=== PATIENT | female | born 1980 | race Caucasian/White ===

== ENCOUNTER → 2018-02-08 18:29 | Outpatient (CLI) | payer OTHER, SELFPAY ==
[2018-02-08 20:17] LABS: Chlamydia Trachomatis by PCR Negative (Negative); Neisserai gonorrhoeae by PCR Negative (Negative); Probe Check PASS; Sample Adequacy Control PASS; Specimen Processing Control PASS
[2018-02-12 11:49] LABS: HPV Reflexed? NOT INDICATED
== END ==
PROVIDERS: Referring Provider Obstetrics & Gynecology; Visit Provider Obstetrics & Gynecology
DX: Z34.81 Encounter for supervision of other normal pregnancy, first trimester (principal); Z12.4 Encounter for screening for malignant neoplasm of cervix; Z11.3 Encounter for screening for infections with a predominantly sexual mode of transmission
CPT/HCPCS: 87491; 87591; 88175; G0145

== ENCOUNTER → 2018-03-01 14:23 | Outpatient (CLI) | payer OTHER, SELFPAY ==
[2018-03-01 15:50] LABS: Absolute Lymphocyte Count 1.44 X10^3/ul (0.83-4.51); Absolute Neutrophil Count 5.8 X10^3/uL (2.0-7.7); Basophil# 0.01 X10^3/uL; Basophil% 0.1 % (0-1); Eosinophil# 0.01 X10^3/uL; Eosinophils% 0.1 % (0-5); Hematocrit 36.6 % (37-47); Hemoglobin 12.4 g/dl (12.0-15.0); Lymphocyte # 1.44 X10^3/ul (4.0); Lymphocyte % 18.8 % (19-41); Mean Corp Hgb Conc 33.9 g/gl (32-36); Mean Corpuscular Hgb 32.2 pg (27.0-32.0); Mean Corpuscular Volume 95.1 fL (81-99); Mean Platelet Vol. 10.1 fl (6.2-12.0); Monocyte# 0.38 X10^3/uL; Neutrophil # 5.82 X10^3/uL (2.7-7.7); Neutrophil % 75.9 % (47-70); Platelet Count 285 K/mm3 (150-450); RBC Distribution Width CV 11.9 % (11.6-14.6); RBC Distribution Width SD 40.9 fl (35.1-43.9); Red Blood Count 3.85 M/mm3 (4.2-5.4); White Blood Count 7.7 K/mm3 (4.4-11.0)
[2018-03-01 15:58] LABS: POSITIVE COUNT NO; POSITIVE DIFFERENTIAL NO; POSITIVE MORPHOLOGY NO
[2018-03-01 16:05] LABS: Thyroid Stim Hormone (TSH) 0.83 uIU/mL (0.358-3.74)
[2018-03-01 16:07] LABS: Color, Urine Yellow (Yellow); Glucose, Dipstick Normal (Normal); Ketone-Dipstick Negative (Negative); Leukocyte Esterase-Dipstick 500 /ul (Negative); Nitrite-Dipstick Negative (Negative); Occult Blood-Urine 10 /ul (Negative); Protein-Dipstick Negative (Negative); Specific Gravity, Urine 1.015 (1.002-1.030); Urine Bilirubin Dipstick Negative (Negative); Urine Clarity Clear (Clear); Urine Urobilinogen Normal (Normal)
[2018-03-01 16:46] LABS: HIV - WCH Non-Reactive (Nonreactive); Rubella IgG 137.1 IU/mL
[2018-03-01 17:01] LABS: Amphetamine Urine VISTA NEGATIVE (<1000 ng/mL); Barbiturate Urine VISTA NEGATIVE (< 200 ng/mL); Benzodiazepine Urine VISTA NEGATIVE (< 200 ng/mL); Cocaine Urine VISTA NEGATIVE (< 300 ng/mL); Ecstacy Urine VISTA NEGATIVE (< 500 ng/mL); Methadone Urine VISTA NEGATIVE (< 300 ng/mL); PCP Urine VISTA NEGATIVE (< 25 ng/mL); THC Urine VISTA NEGATIVE (< 50 ng/mL); Vista UDS pH Range 7
[2018-03-03 08:11] LABS: HEPATITIS B SURFACE AG Negative (Negative); Hep C Antibodies <0.1 s/co ratio (0.0-0.9)
[2018-03-04 02:33] LABS: Prenatal RPR NONREACTIVE (NONREACTIVE)
== END ==
PROVIDERS: Visit Provider Obstetrics & Gynecology
DX: Z34.81 Encounter for supervision of other normal pregnancy, first trimester (principal)
CPT/HCPCS: 36415; 80307; 81002; 84443; 85025; 86703; 86762; 86803; 87340

== ENCOUNTER → 2018-06-28 08:31 | Outpatient (CLI) | payer OTHER, SELFPAY ==
[2018-06-28 14:00] LABS: Glucose Challenge Gest 1H 50g 147 mg/dL (70-140)
[2018-06-28 14:02] LABS: Hemoglobin 10.5 g/dl (12.0-15.0); Mean Corp Hgb Conc 31.8 g/gl (32-36); Mean Corpuscular Hgb 31.4 pg (27.0-32.0); Mean Corpuscular Volume 98.8 fL (81-99); Mean Platelet Vol. 9.1 fl (6.2-12.0); Platelet Count 303 K/mm3 (150-450); RBC Distribution Width CV 13.2 % (11.6-14.6); RBC Distribution Width SD 47.9 fl (35.1-43.9); Red Blood Count 3.34 M/mm3 (4.2-5.4); White Blood Count 6.7 K/mm3 (4.4-11.0)
[2018-06-28 14:07] LABS: Scan Indicated on CBC? Y/N NO
== END ==
PROVIDERS: Visit Provider Obstetrics & Gynecology
DX: Z34.82 Encounter for supervision of other normal pregnancy, second trimester (principal)
CPT/HCPCS: 36415; 82950; 85027; 86850

== ENCOUNTER → 2018-07-01 09:43 | Outpatient (CLI) | payer OTHER, SELFPAY ==
[2018-07-01 10:41] LABS: Glucose GTT-Gestation. Fasting 78 mg/dL (<105)
[2018-07-01 12:16] LABS: Glucose GTT-Gestational 1 Hr 151 mg/dL (<190)
[2018-07-01 13:06] LABS: Glucose GTT-Gestational 2 Hr 143 mg/dL (<165)
[2018-07-01 13:39] LABS: Glucose GTT-Gestational 3 Hr 121 L (<145)
== END ==
PROVIDERS: Referring Provider Obstetrics & Gynecology; Visit Provider Obstetrics & Gynecology
DX: O24.912 Unspecified diabetes mellitus in pregnancy, second trimester (principal)
CPT/HCPCS: 36415; 82951; 82952

== ENCOUNTER → 2018-08-25 13:13 | Outpatient (CLI) | payer OTHER, SELFPAY | LOC: WOBLAB 13:14 → LABSPEC 13:14 | PROVIDERS: Visit Provider Obstetrics & Gynecology | DX: Z36.85 Encounter for antenatal screening for Streptococcus B (principal) | CPT/HCPCS: 87081 ==

== ENCOUNTER 2018-09-30 07:00 | Inpatient (IN) | payer OTHER, SELFPAY ==
[2018-09-30 07:11] VITALS: BMI 27.8
[2018-09-30] MEDS: Lactated Ringers 1,000 ML 50 ML IV ×4 (07:30→22:43)
[2018-09-30] MEDS: Oxytocin 30 units/NS 500 ml 30 UNITS/500 ML IV.SOLN IV (07:45)
[2018-09-30 08:04] LABS: Absolute Lymphocyte Count 1.39 X10^3/ul (0.83-4.51); Absolute Neutrophil Count 5.3 X10^3/uL (2.0-7.7); Basophil# 0.01 X10^3/uL; Basophil% 0.1 % (0-1); Eosinophil# 0.02 X10^3/uL; Eosinophils% 0.3 % (0-5); Hematocrit 36.4 % (37-47); Hemoglobin 12.1 g/dl (12.0-15.0); Lymphocyte # 1.39 X10^3/ul (4.0); Lymphocyte % 19.5 % (19-41); Mean Corp Hgb Conc 33.2 g/gl (32-36); Mean Corpuscular Hgb 32.4 pg (27.0-32.0); Mean Corpuscular Volume 97.6 fL (81-99); Mean Platelet Vol. 9.6 fl (6.2-12.0); Monocyte# 0.37 X10^3/uL; Monocyte% 5.2 % (0-10); Neutrophil # 5.31 X10^3/uL (2.7-7.7); Neutrophil % 74.3 % (47-70); POSITIVE COUNT NO; POSITIVE DIFFERENTIAL NO; POSITIVE MORPHOLOGY NO; Platelet Count 231 K/mm3 (150-450); RBC Distribution Width CV 15.2 % (11.6-14.6); RBC Distribution Width SD 53.7 fl (35.1-43.9); Red Blood Count 3.73 M/mm3 (4.2-5.4); White Blood Count 7.1 K/mm3 (4.4-11.0)
--- NOTE | 2018-09-30 08:05 | HP.PCM_ITS ---
History and Physical Date of Admission: 09/30/18 OB HISTORY AND PHYSICAL EXAMINATION History of this : 38 yo female Ab0 with EDC 09/22/2018 by 10 weeks 5 days Ultrasound, presents to Labor and Delivery at 41 1/7 wk EGA for planned induction of p ostdates . care remarkable for - O negative. Rubella IMMUNE. GBS negative. 1.) Abnormal glucola, normal 3 hr GTT 2.) Anemic iron daily Hgb 12 g/dl. on admission today. 3.) O NEG RhoGAM at 28-29 wks. 4.) AMA -- declines testing. Pertinent Past Medical History: None. Allergies: Amoxicillin Medications: During -; Emetrol oral solution; + DHA 28 mg iron- 975 mcg- 200 mg combo pack; promethazine 25 mg tablet; Tums 200 mg calcium (500 mg) chewable tablet; Zofran 4 mg tablet; ferrous gluconate 236 mg (27 mg iron) tablet Review of Systems: Non-contributory PHYSICAL EXAMINATION General Appearence: 38 yo female in no acute distress Vital Signs: AF, VSS Heart: RRR without rubs or gallops Lungs: CTA x 2 Breasts: deferred Abdomen: gravid Pelvis: Cervix: Presentation: cephalic Station: Fetus: Size: AGA Movement: present Heart: present 120-130s avg variability. Accels noted. UCs irregular, q 2-8 mins Impression /Plan: Intrauterine . 41 1/7 wk induction of labor. Admit. Pitocin per protocol. AROM Watch progress, descent and tolerance of labor. See Progress Notes for Changes: Physician's Signature: Date: H and P GENERATED AT ADMISSION. SEE PROGRESS NOTES FOR CHANGES TO THIS H AND P Alia Cannon MD 09/30/18 at 0811 am
--- NOTE | 2018-09-30 12:11 | PCM.PN.BLA ---
Progress Note INDUCTION 41 1/7 wk Feeling UCs but pain at approx 4 on pain scale. Considering Epidural after AROM AVSS Pitocin at 8 mIU/min. EFM 120-130s avg variability. Accels Prolonged accel with scalp stim. UCs q 1-5 mins with some coupling and spacing CX: FT (2 cm) 90 -3 Vtx well applied to cervix. AROM mod clear to blood tinged fluid noted. A/P: 41 1/7 wk induction postdates. Pitocin, Continue labor. Watch progress, descent. tolerance of labor. Category I tracing.
[2018-09-30] MEDS: fentaNYL-bupivacaine (epidural) 100 ML BAG EPIDURAL ×3 (13:34→22:43)
--- NOTE | 2018-09-30 17:36 | PCM.PN.BLA ---
Progress Note 41 1/7 wk induction AROM approx noon. Pitocin at 10 mIU/min Comfortable with epidural. Drinking broth. Last cervix check /-2 per RN Now /-2 OP Scant bloody show with exam. EFM 120-130s avg variability. Accels Occasional mild variable. UCs q 1 1/2 - 5m in with coupling and spacing noted A/P: 41 1/7 wk induction of labor. Continue Pitocin watch further progress, descent. Category I tracing.
[2018-09-30] MEDS: Ondansetron 4 MG/2 ML Vial IV ×2 (19:34→23:33)
--- NOTE | 2018-09-30 21:14 | PCM.PN.BLA ---
Progress Note 41 1/7 wk EGA . Induction postdates Not painful, but chills and having some nausea off and on AVSS Pitocin at 14 mIU/min EFM 120s with accels. avg variability. Occasional variable UCs q 1 1/2- 4 mins CX: 7/0 station per RN check at 8:30 pm A/P: Induction postdates. 41 1/7 wk. Adequate progress. Continue labor. EFM category I tracing
--- NOTE | 2018-09-30 23:32 | PCM.PN.BLA ---
Progress Note LABOR INDUCTION 41 1/7 wk EGA Complete and pushing. Feeling some nausea, sl discomfort. AVSS Pitocin at 14 mIU/min EFM 120-130s avg variability Early decelerations noted. UCs q 2-3 minx A/P: 41 1/7 wk EGA induction. continue pushing. watch tolerance and descent.
[2018-10-01] MEDS: Acetaminophen 325 MG Tablet PO (00:07)
[2018-10-01] MEDS: Oxytocin 30 units/NS 500 ml 30 UNITS/500 ML IV.SOLN 334 UNITS IV (03:52)
--- NOTE | 2018-10-01 04:06 | DCINST_ITS ---
Discharge Diet: No Restrictions Discharge Activity: May Shower, May Take a Tub Bath May resume sexual activity in: 4-6 weeks Additional Activity Instructions:: Nothing in the vagina for 4-6 weeks. You may return to work/school in 6 weeks. Additional Instructions: If you experience any of the following, contact your healthcare provider. * Bleeding that soaks a pad every hour for 2 hours * Fever 100.4 or higher * Unrelieved abdominal pain * Problems urinating (including inability to urinate or burning while urinating). * Visual changes * Severe headache * Flu-like symptoms * Pain or redness in one of both of your breasts * Pain, warmth, tenderness or swelling in your legs, especially the calf area * Frequent nausea and vomiting * Symptoms of depression or anxiety If you experience any of the following, call 911 or go to the nearest Emergency Room. * Chest pain * Problems breathing * Seizure activity * Partial or complete paralysis of a body part, slurred speech, weakness or drooping of the face, or a sudden inability to walk or hold your balance Allergies/Adverse Reactions: Allergies amoxicillin Allergy (Verified 09/30/18 07:33) Rash latex Allergy (Verified 09/30/18 07:33) Rash Medications to take at Discharge Acetaminophen [Tylenol] 325 mg PO 09/30/18 Ferrous Gluconate [Fergon] 270 mg PO 09/30/18 Loratadine [Claritin] 09/30/18 Pnv No.95/Ferrous Fum/Folic AC [ Caplet] 1 ea PO 09/30/18 Ranitidine HCl [Zantac 75] 75 mg PO 09/30/18 Senna [Senokot] 2 tab PO DAILY 09/30/18 Janice Manuel [Preparation H] 1 ea TP 09/30/18 Please Follow Up With: Jessica Cannon MD - [phone] When: Call to make an appointment with your doctor in 6 weeks. Primary Care Physician: Lizzette Badillo,Out of [Primary Care Provider] - Test Results: Test results from this visit will be discussed in further detail at your follow-up appointment, if applicable.
--- NOTE | 2018-10-01 04:08 | PCM.OPRPT ---
Vaginal Delivery Maternal Presentation: Medically Indicated Induction 41 1/7 wk induction of labor Method of Induction: Pitocin, Amniotomy Amniotic Membrane Rupture Type: Artificial Amniotic Fluid Description: Clear Final COLBY: 09/22/18 Gestational age: 41 Weeks and 2 Days Date of Procedure: 10/01/18 Pre-Operative Diagnosis: 41 1/7 wk induction Post-Operative Diagnosis: 41 2/7 wk delivery Surgery/ Procedure Performed: Spontaneous Vaginal Delivery Type of Anesthesia: Epidural Description of Procedure: of a tran viable male over intact perineum to lacerations. Head delivered ROD. OP and nares bulb suctioned on perineum. No nuchal cord. Shoulders delivered easily with reduction of posterior shoulder first, baby's hand delivered. to maternal abdomen with spont cry. Ap 8/9. Cord clamped times two and cut. (Infant with caput noted c/w initial asynclitic presentation in labor) PP exam; 2nd degree posterior vaginal to perineal laceration with small L vaginal sidewall extension. Repaired under epidural to hemostatic and intact. Placenta delivered by spont expulsion, expression 3V normal appearing and intact with trailing membranes Pt and tolerated delivery well. To recovery, stable condition Ray Juan counts correct times two. Presentation: Vertex, ROD Placental Delivery Description: Spontaneous, Expressed Cord Vessel Description: 3 Vessels Cord Entanglement: None Drain: Decker to straight drain Estimated Blood Loss: 500 Infant A gender: Male (1 minute): 8 (5 minute): 9 Episiotomy Description: None Laceration: Midline, Perineal Extension/lac, Vaginal Extension/lac, 2nd degree Medications given after delivery: IV Pitocin Complications: None
[2018-10-01] MEDS: Oxytocin 30 units/NS 500 ml 30 UNITS/500 ML IV.SOLN 167 UNITS IV (04:22)
[2018-10-01 07:30] VITALS: BP 91/54; PULSE 86; RESP 16; TEMP 37.1
--- NOTE | 2018-10-01 08:16 | PCM.PN.OB ---
Subjective: Day od Delivery 41 2/7 wk EGA induction Nursing well. In good spirits. Minimal pain or bleeding. baby wt: 9# 14 oz - Physical Exam General: Alert, Oriented x3, Cooperative, No apparent distress HEENT: Atraumatic Neck: Supple Neurological: Cranial nerves II-XII grossly intact Psych/Mental Status: Normal Affect Vital Signs Temp Pulse Resp BP 98.8 F 86 16 91/54 L 10/01/18 07:30 10/01/18 07:30 10/01/18 07:30 10/01/18 07:30 Oxygen Delivery Method Room Air Weight: 78.29 kg Body Mass Index (BMI) 27.8 Intake and Output for Last 24 Hours 09/29/18 09/30/18 10/01/18 23:59 23:59 23:59 Intake Total 1950 / 1950 2125 / 2125 Output Total 1500 / 1500 1630 / 1630 Balance 450 / 450 495 / 495 Laboratory Tests Past 24 Hrs 09/30/18 09/30/18 07:30 07:30 Blood Type O NEGATIVE Antibody Screen TNP NEGATIVE Medical Necessity - Tobacco Use Smoking Status: Never smoker Assessment/Plan Day of Delivery Stable continue routine care
[2018-10-01] MEDS: Ibuprofen 600 MG Tablet PO ×2 (09:58→16:25)
[2018-10-01 12:03] VITALS: BP 88/52; PULSE 80; RESP 16; TEMP 36.9; O2SAT 99
[2018-10-01] MEDS: Dibucaine 30 GM Tube 1 APPLIC TOPICAL (12:25)
[2018-10-01] MEDS: Acetaminophen 500 MG Tablet 1000 MG PO ×2 (12:44→20:46)
[2018-10-01] MEDS: Senna/Docusate Sodium 1 Tablet PO (12:44)
[2018-10-01 16:00] VITALS: BP 98/52; PULSE 71; RESP 13; TEMP 36.7
[2018-10-01 20:00] VITALS: BP 98/56; PULSE 79; RESP 16; TEMP 36.7
[2018-10-01 23:00] VITALS: BP 99/53; PULSE 82; RESP 16; TEMP 37.2
[2018-10-02] MEDS: Ibuprofen 600 MG Tablet PO ×4 (01:26→21:28)
[2018-10-02 04:00] VITALS: BP 98/60; PULSE 80; RESP 16; TEMP 37
[2018-10-02] MEDS: Acetaminophen 500 MG Tablet 1000 MG PO (05:34)
--- NOTE | 2018-10-02 07:17 | PCM.PN.OB ---
Subjective: PPD#1 Doing well. Asking about perineal care. Breast feeding. Minimal pain , minimal bleeding. Objective: Sitting up in chair reading. Baby sleeping in crib. - Physical Exam General: Alert, Oriented x3, Cooperative, No apparent distress HEENT: Atraumatic, EOMI Neck: Supple Neurological: Cranial nerves II-XII grossly intact Psych/Mental Status: Normal Affect Vital Signs Temp Pulse Resp BP Pulse Ox 98.6 F 80 16 98/60 99 10/02/18 04:00 10/02/18 04:00 10/02/18 04:00 10/02/18 04:00 10/01/18 12:03 Oxygen Delivery Method Room Air Weight: 78.29 kg Body Mass Index (BMI) 27.8 Intake and Output for Last 24 Hours 09/30/18 10/01/18 10/02/18 23:59 23:59 23:59 Intake Total 1950 / 1950 2125 / 2125 Output Total 1500 / 1500 2480 / 2480 Balance 450 / 450 -355 / -355 Laboratory Tests Past 24 Hrs 10/01/18 15:30 Screen NEGATIVE Baby's Blood Type O POSITIVE Baby's YANELI NEGATIVE Medical Necessity - Tobacco Use Smoking Status: Never smoker Assessment/Plan PPD#1 Stable Dischg home later today, PM if pt requests. Continue routine care
[2018-10-02 08:00] VITALS: BP 92/61; PULSE 72; RESP 18; TEMP 36.4
[2018-10-02] MEDS: Senna/Docusate Sodium 1 Tablet PO (08:05)
[2018-10-02 14:00] VITALS: BP 95/61; PULSE 76; RESP 18; TEMP 36.7
--- NOTE | 2018-10-02 14:23 | NURSING ---
slight edema noted. encourage motrin and ice packs
[2018-10-02 20:50] VITALS: BP 92/54; PULSE 73; RESP 16; TEMP 36.5
[2018-10-03 02:00] VITALS: BP 100/60; PULSE 70; RESP 16; TEMP 36.7
[2018-10-03] MEDS: Ibuprofen 600 MG Tablet PO (06:23)
--- NOTE | 2018-10-03 08:06 | PN.OBGYN_ITS ---
Subjective: PPD#2 Still some discomfort with hips. Using abdominal binder for this prn. Nursing. Little sleep, sore nipples, and baby up most of the night. Pain control OK. - Physical Exam General: Alert, Oriented x3, Cooperative, No apparent distress HEENT: Atraumatic Neck: Supple Psych/Mental Status: Normal Affect Vital Signs Temp Pulse Resp BP Pulse Ox 98.0 F 70 16 100/60 99 10/03/18 02:00 10/03/18 02:00 10/03/18 02:00 10/03/18 02:00 10/01/18 12:03 Oxygen Delivery Method Room Air Weight: 78.29 kg Body Mass Index (BMI) 27.8 Intake and Output for Last 24 Hours 10/01/18 10/02/18 10/03/18 23:59 23:59 23:59 Intake Total 2125 / 2125 Output Total 2480 / 2480 Balance -355 / -355 Medical Necessity - Tobacco Use Smoking Status: Never smoker Assessment/Plan PPD#2 Stable Dischg home later today triple nipple cream to be called to [facility] outpt pharmacy to use prn RTO in 6 wk for pp check.
[2018-10-03 11:00] VITALS: BP 92/50; PULSE 74; RESP 20; TEMP 36.4
== END 2018-10-03 11:00 | disposition home health service (06) | DRG 807 ==
PROVIDERS: Admitting Provider Obstetrics & Gynecology; Referring Provider Obstetrics & Gynecology; Visit Provider Obstetrics & Gynecology
DX: O48.0 Post-term pregnancy (principal); Z37.0 Single live birth; O99.02 Anemia complicating childbirth; D64.9 Anemia, unspecified; O70.1 Second degree perineal laceration during delivery; Z3A.41 41 weeks gestation of pregnancy
CPT/HCPCS: 59025; 59050; 85025; 85461; 86850; 86900; 90384; 99218; J7120; G0378; J2405; J2790

== ENCOUNTER → 2018-11-08 11:27 | Outpatient (CLI) | payer OTHER, SELFPAY ==
[2018-11-08 15:45] LABS: Hematocrit 40.2 % (37-47); Hemoglobin 12.8 g/dL (12.0-15.0); Mean Corp Hgb Conc 31.8 g/dL (32-36); Mean Corpuscular Volume 100.5 fL (81-99); Mean Platelet Vol. 9.2 fl (6.2-12.0); Platelet Count 371 K/mm3 (150-450); RBC Distribution Width CV 12.1 % (11.6-14.6); White Blood Count 7.1 K/mm3 (4.4-11.0)
[2018-11-08 16:17] LABS: ALB/GLOB Ratio 1.1 RATIO (0.9-2.4); AST(SGOT) 45 U/L (15-37); Alanine Aminotransfer ALT/SGPT 72 U/L (13-56); Albumin, Serum 4.1 g/dL (3.2-5.0); Alkaline Phosphatase 171 U/L (45-117); Anion Gap 5 (5-15); BUN 12 mg/dL (7-18); BUN/Creat Ratio 16.1 RATIO (10-20); Calcium,Total 9.3 mg/dL (8.5-10.1); Chloride 106 mmol/L (98-107); Cholesterol 214 mg/dL (200); Creatinine, Serum 0.74 mg/dL (0.55-1.02); EST Glomerular Filtration Rate 93 mL/min (>60); Est Glom Filt Rate - Afr Amer 113 mL/min (>60); Globulin 3.8 g/dL (2.2-4.2); Glucose 91 mg/dL (74-106); High Density Lipoprotein 111 mg/dL; Potassium 3.9 mmol/L (3.5-5.1); Protein, Total 7.9 g/dL (6.4-8.2); Sodium Level 139 mmol/L (136-145); Thyroid Stim Hormone (TSH) 1.74 uIU/mL (0.358-3.74); Triglycerides 85 mg/dL; Very Low Density Lipoprotein 17 mg/dL (5-40)
== END ==
PROVIDERS: PCP Obstetrics & Gynecology
DX: Z00.00 Encounter for general adult medical examination without abnormal findings (principal)
CPT/HCPCS: 36415; 80053; 80061; 84443; 85027

== ENCOUNTER → 2020-12-26 15:19 | Outpatient (CLI) | payer OTHER, SELFPAY ==
[2021-01-01 14:27] LABS: HPV APTIMA, High Risk Negative (Negative)
== END ==
PROVIDERS: Visit Provider Obstetrics & Gynecology
DX: Z12.4 Encounter for screening for malignant neoplasm of cervix (principal)
CPT/HCPCS: 87624; 88175; G0145

== ENCOUNTER 2021-05-08 13:28 | Outpatient (CLI) | payer OTHER, SELFPAY | END 2021-05-08 23:59 | disposition home or self-care (01) | PROVIDERS: Visit Provider Student in an Organized Health Care Education/Training Program | DX: N77.1 Vaginitis, vulvitis and vulvovaginitis in diseases classified elsewhere (principal) ==